=== PATIENT | female | born 1970 | race Caucasian/White ===

== ENCOUNTER → 2022-06-28 14:33 | Outpatient (BNVA) | payer SELFPAY | PROVIDERS: Visit Provider Psychiatry & Neurology Psychiatry | DX: F98.8 Other specified behavioral and emotional disorders with onset usually occurring in childhood and adolescence (principal); F32.5 Major depressive disorder, single episode, in full remission | CPT/HCPCS: 99212 ==

== ENCOUNTER → 2022-10-30 12:37 | Outpatient (BNVA) | payer OTHER, SELFPAY | PROVIDERS: Visit Provider Psychiatry & Neurology Psychiatry | DX: F98.8 Other specified behavioral and emotional disorders with onset usually occurring in childhood and adolescence (principal) ==

== ENCOUNTER 2023-04-10 17:03 | Outpatient (AMB) | payer OTHER, SELFPAY ==
--- NOTE | 2023-04-10 16:15 | MHC.OFFVISPS ---
Intake Intake Visit Reasons: depression Medication List - Last Reconciled 04/10/23 by Kirk Lawrence MD dextroamphetamine-amphetamine 20 mg (Adderall) 20 mg PO BID fluoxetine (Prozac) 20 mg PO DAILY lisinopril 5 mg PO DAILY verapamil ER 240 mg PO DAILY HPI- Psychiatric Chief Complaint: depression HPI Narrative: patient is seen psychiatric follow-up telehealth appointment. 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 His of demanding position can be stressful at times particularly with COVID restarting. Patient's mood is stable able to enjoy things good relationship with her ex- son friends and family. No complaints of side effects no medical changes has done well on a combination of fluoxetine and Adderall. No complaints of palpitations chest pain shortness breath Past Psychiatric History: Or history of ADD and depression Mental Status Exam Mental Status Exam Narrative: Mental Status Exam Narrative: Appearance: Casually dressed Behavior: Cooperative appropriate psychomotor: Within normal limits Speech: Normal volume and prosody Thought proccess logical and goal-directed Thought content: Future oriented no self-harming thoughts some concern about new position requirements involved Mood: Euthymic Affect: Appropriate to mood full affect SI:denies HI:denies VH/AH:none Delusions: None Insight/judgment: Good insight and judgment Memory/cog: Intact Telehealth Telehealth Location of provider rendering services: practice address Location of patient: other (Her place of work secure ) Patient Identification confirmed using: Name, : Yes Telehealth method: video Patient verbally consented to treatment: Yes Patient verbally consented to billing insurance company: Yes Minutes spent on Phone/Video with Pt.: 15 Assessment and Plan Assessment & Plan (1) Major depression in full remission: Status: Acute Code(s): F32.5 - Major depressive disorder, single episode, in full remission (2) ADD (attention deficit disorder): Status: Acute Code(s): F98.8 - Other specified behavioral and emotional disorders with onset usually occurring in childhood and adolescence Plan Patient has been doing well 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 She has continued to reconnect with her ex- in this relationship is going well. Her blood pressure is reportedly in good control she remains Prozac and Adderall lisinopril and verapamil. No chest pain shortness breath palpitations again discussed with patient need to monitor blood pressure while on Adderall in risks of chronic hypertension continue plan of care follow-up 3-4 months will try and do in person no change in plan Counseling and coordination of Care Diagnosis and Prognosis Counseling: Prognosis over time and Adequacy of current interventions Details: I spent [15] minutes reviewing the record, seeing the patient and documenting in the medical record. Counseling provided to the patient/caregiver as outlined below. Addressed patient/caregiver concerns regarding current medication regime including effective adherence. Addressed patient/caregiver concerns regarding diagnosis and prognosis including accuracy of diagnosis, prognosis over time, impact of diagnosis. Addressed patient/caregiver concerns regarding impact of recent stressors. 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
== END 2023-04-10 17:06 | disposition home or self-care (01) ==
PROVIDERS: Visit Provider Psychiatry & Neurology Psychiatry
DX: F32.5 Major depressive disorder, single episode, in full remission (principal); F98.8 Other specified behavioral and emotional disorders with onset usually occurring in childhood and adolescence
CPT/HCPCS: 99213

== ENCOUNTER → 2023-04-10 17:03 | Outpatient (BNVA) | payer OTHER, SELFPAY | PROVIDERS: Visit Provider Psychiatry & Neurology Psychiatry ==

== ENCOUNTER 2024-10-04 14:44 | Outpatient (AMB) | payer OTHER, SELFPAY ==
--- NOTE | 2024-10-04 14:44 | MHC.OFFVISPS ---
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 minimal elevated l eye pressure Past Psychiatric History: Or history of ADD and depression Mental Status Exam Mental Status Exam Narrative: Mental Status Exam Narrative: Appearance: Casually dressed Behavior: Cooperative appropriate psychomotor: Within normal limits Speech: Normal volume and prosody Thought proccess logical and goal-directed Thought content: Future oriented no self-harming thoughts some concern about new position requirements involved Mood: Euthymic Affect: Appropriate to mood full affect SI:denies HI:denies VH/AH:none Delusions: None Insight/judgment: Good insight and judgment Memory/cog: Intact Assessment and Plan Assessment & Plan (1) Major depression in full remission: Status: Acute Code(s): F32.5 - Major depressive disorder, single episode, in full remission (2) Attention deficit disorder (ADD) in adult: Status: Acute Code(s): F98.8 - Other specified behavioral and emotional disorders with onset usually occurring in childhood and adolescence (3) Menopausal flushing: Status: Acute Code(s): N95.1 - Menopausal and female climacteric states Plan Pt doing well no concerns bp good no c/o side effects inc proxac for menopausal sx Medications: Changed From fluoxetine 20 mg PO DAILY 90 caps 0RF To fluoxetine (Prozac) 40 mg (2 x 20 mg) PO DAILY 180 caps 1RF Counseling and coordination of Care Medication management counseling: Effectiveness, Side effects and Dosing range Details: I spent [] minutes reviewing the record, seeing the patient and documenting in the medical record. Counseling provided to the patient/caregiver as outlined below. Addressed patient/caregiver concerns regarding current medication regime including effective adherence. Addressed patient/caregiver concerns regarding diagnosis and prognosis including accuracy of diagnosis, prognosis over time, impact of diagnosis. Addressed patient/caregiver concerns regarding impact of recent stressors. 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
[2024-10-04 14:46] VITALS: BP 127/80
== END 2024-10-04 15:19 | disposition home or self-care (01) ==
PROVIDERS: PCP Physician Assistant; Visit Provider Psychiatry & Neurology Psychiatry
DX: F32.5 Major depressive disorder, single episode, in full remission (principal); F98.8 Other specified behavioral and emotional disorders with onset usually occurring in childhood and adolescence; N95.1 Menopausal and female climacteric states
CPT/HCPCS: 99214